=== PATIENT | male | born 2000 | race Caucasian/White ===

== ENCOUNTER 2022-03-19 02:59 | Inpatient (IN) ==
[2022-03-19 18:02] LABS: Influenza A PCR Negative (Negative); Influenza B PCR Negative (Negative); Resp. Syncytial Virus PCR Negative (Negative)
[2022-03-19 18:04] LABS: SARS-CoV-2 by PCR (In House) Negative (Negative)
[2022-03-19] MEDS ORDERED: Haloperidol Lactate 5 MG/ML VIAL IM PRN (18:38)
[2022-03-19] MEDS ORDERED: Acetaminophen 325 MG TABLET PO PRN (18:38)
[2022-03-19] MEDS ORDERED: *HR* LORazepam 2 MG/ML VIAL IM PRN (18:38)
[2022-03-19] MEDS ORDERED: haloperidoL 5 MG TABLET PO PRN (18:38)
[2022-03-19] MEDS ORDERED: *HR* LORazepam 1 MG TABLET PO PRN (18:38)
[2022-03-19] MEDS ORDERED: MOM Conc 10 ML UD.LIQ PO PRN (19:59)
[2022-03-20] MEDS: hydrOXYzine pamoate 25 MG CAPSULE PO PRN ×2 (13:07→21:10)
[2022-03-20] MEDS: traZODone 50 MG TABLET PO PRN (21:10)
[2022-03-20] MEDS: Divalproex (12 HR) 500 MG TABLET PO SCH (21:10)
[2022-03-21] MEDS: Mag Hydrox/Al Hydrox/Simeth 30 ML UDC PO PRN (00:37)
[2022-03-21] MEDS: traZODone 50 MG TABLET PO PRN (00:40)
[2022-03-21] MEDS ORDERED: QUEtiapine Fumarate 25 MG TABLET PO PRN (08:43)
[2022-03-21] MEDS: Divalproex (12 HR) 500 MG TABLET PO SCH ×2 (09:33→21:43)
[2022-03-21 21:05] VITALS: O2SAT 99
[2022-03-21] MEDS: hydrOXYzine pamoate 25 MG CAPSULE PO PRN (21:43)
[2022-03-22] MEDS: Mag Hydrox/Al Hydrox/Simeth 30 ML UDC PO PRN (07:52)
[2022-03-22] MEDS: Divalproex (12 HR) 500 MG TABLET PO SCH (08:38)
[2022-03-22 09:17] VITALS: BP 137/86; PULSE 118; TEMP 98.1
== END 2022-03-22 11:42 | disposition home or self-care (01) | DRG 885 ==
LOC: EMEROOARM 02:59 → INTOOBSV 18:32 → 1ANU 18:32
PROVIDERS: ADMIT Psychiatry & Neurology Psychiatry; ATTEND Psychiatry & Neurology Psychiatry